=== PATIENT | male | born 1975 ===

== ENCOUNTER 2018-05-31 22:20 | Emergency (ER) | payer OTHER ==
[2018-05-31 22:49] VITALS: BP 113/72; RESP 18; TEMP 98; O2SAT 99
[2018-05-31] MEDS ORDERED: Sodium Chloride 0.9% 1,000 ML IV STA (23:12)
[2018-05-31 23:31] LABS: BASO % 0.3 % (0.0-2.0); EOS # 0.1 K/uL (0.0-0.7); HEMOGLOBIN 14.1 g/dL (12.0-18.0); LYMPH # 0.9 K/uL (1.0-4.3); LYMPH % 7.9 % (20.0-40.0); MEAN CORPUSCULAR HEMOGLOBIN 31.3 pg (27.0-31.0); MEAN CORPUSCULAR HGB CONC 33.7 g/dL (33.0-37.0); MEAN PLATELET VOLUME 8.1 fl (7.2-11.7); MONO # 0.9 K/uL (0.0-0.8); NEUT % 82.8 % (50.0-75.0); PLATELET COUNT 223 K/uL (130-400); RBC 4.49 Mil/uL (4.40-5.90); WHITE BLOOD COUNT 10.8 K/uL (4.8-10.8)
--- NOTE | 2018-05-31 23:32 | ED PDOC ---
Syncope/Near Syncope/Dizziness Time Seen by Provider: 05/31/18 22:48 Chief Complaint (Nursing): Syncope Chief Complaint (Provider): Left Extremity Pain/Injury and Syncope History Per: Patient History/Exam Limitations: no limitations Onset/Duration Of Symptoms: Mins Current Symptoms Are (Timing): Still Present Activity At Onset Of Symptoms: Other (Dancing) Associated Symptoms Preceding Syncopal Episode: Lightheadedness Seizure Or Post-ictal Symptoms: None Additional Complaint(s): 43 y/o [place] male with a PMHx of Achalasia who states just prior was at a family celebration of [facility] and while dancing attempted to perform a split, immediately feeling severe sharp pain to the left hamstring. Patient reports he then felt very lightheaded and sweaty causing him to sit down. According to the family, patient appeared to have lost consciousness. Despite eyes being open, patient was not responding to stimuli from the family. Patient appeared to be weak and slumped over to the right side. Family report loss of consciousness lasted approximately 15 seconds. Patient suddenly woke up, telling people not to call 911 and that he thought he was okay. Denies convulsive activity, urinary incontinence and any weakness currently. Patient reports only pain to the left hamstring. Patient states pain worsens when straightening his leg while lying in bed. PMD: none Past Medical History Reviewed: Historical Data, Nursing Documentation, Vital Signs Vital Signs: Last Vital Signs Temp 98 F 05/31/18 22:42 Pulse 70 05/31/18 22:42 Resp 18 05/31/18 22:42 BP 113/72 05/31/18 22:42 Pulse Ox 99 05/31/18 22:42 - Medical History Other PMH: Achalasia - Surgical History Surgical History: Endoscopy (to relieve Achalasia) - Family History Family History: States: CAD (in father) - Social History Current smoker - smoking cessation education provided: No Alcohol: None Drugs: Denies - Home Medications Home Medications: Ambulatory Orders Medication Instructions Recorded Cyclobenzaprine [Cyclobenzaprine 10 mg PO BID #15 tab 06/01/18 HCl] - Allergies Allergies/Adverse Reactions: Allergies Allergy/AdvReac Type Severity Reaction Status Date / Time No Known Allergies Allergy Verified 05/31/18 22:42 Review of Systems ROS Statement: Except As Marked, All Systems Reviewed And Found Negative (as per HPI) Constitutional: Positive for: Sweats. Negative for: Weakness (currently) Genitourinary Male: Negative for: Incontinence Musculoskeletal: Positive for: Leg Pain (left hamstring pain) Neurological: Positive for: Dizziness (lightheadedness), Other (syncopal episode lasting at about 15 seconds). Negative for: Seizures (no convulsive activity) Physical Exam - Reviewed Nursing Documentation Reviewed: Yes Vital Signs Reviewed: Yes - Physical Exam Appears: Positive for: Uncomfortable, In Acute Distress (mild, painful distress) Head Exam: Positive for: ATRAUMATIC, NORMOCEPHALIC Skin: Positive for: Warm, Dry Eye Exam: Positive for: Normal appearance, EOMI, PERRL. Negative for: Nystagmus ENT: Negative for: Pharyngeal Erythema, Tonsillar Exudate Neck: Positive for: Painless ROM, Supple Cardiovascular/Chest: Positive for: Regular Rate, Rhythm. Negative for: Murmur Respiratory: Positive for: Normal Breath Sounds. Negative for: Respiratory Distress Gastrointestinal/Abdominal: Positive for: Soft. Negative for: Tenderness Back: Positive for: Normal Inspection. Negative for: Decreased ROM Extremity: Positive for: Normal ROM (Full ROM of the left lower extremity), Tenderness (Left Posterior Thigh: Tenderness to palpation of the left upper thigh muscle and lower gluteus), Other (distally neurovascularly intact ) Neurologic/Psych: Positive for: Alert, sample checker II-XII (intact), Oriented (x3), Cerebellar Tests (Normal), Other (Normal Speech). Negative for: Motor/Sensory Deficits, Aphasia, Facial Droop - Laboratory Results Result Diagrams: 05/31/18 23:20 05/31/18 23:20 - ECG ECG Rhythm: Positive for: Normal QRS, Normal ST Segment, Sinus Rhythm Rate: 63 O2 Sat by Pulse Oximetry: 99 (RA) Pulse Ox Interpretation: Normal Medical Decision Making Medical Decision Making: Time: 2319 Impression: Hamstring Strain and Syncope Plan: -- EKG -- CMP -- Magnesium -- Phosphorus -- CBC with Differentials -- Motrin 600 mg PO -- Sodium Chloride 0.9% IV 1000 mls/hr -- Glucose, Blood, POC 2350 Labs unremarkable Pt continues to have tightness. Flexeril ordered Endorsed to Dr Hernandez. Pending reassessment. Scribe Attestation: Documented by Jose L Aquino, acting as a scribe for Doris Lee MD. Provider Scribe Attestation: All medical record entries made by the Scribe were at my direction and personally dictated by me. I have reviewed the chart and agree that the record accurately reflects my personal performance of the history, physical exam, medical decision making, and the department course for this patient. I have also personally directed, reviewed, and agree with the discharge instructions and disposition. Disposition - Clinical Impression Clinical Impression: Syncope, Muscle strain - Disposition Referrals: [facility] [place] [Outside] Disposition: Transfer of Care Disposition Time: 00:00 Condition: STABLE Prescriptions: Cyclobenzaprine [Cyclobenzaprine HCl] 10 mg PO BID #15 tab
[2018-05-31 23:39] VITALS: PULSE 63
[2018-05-31 23:42] LABS: ALB/GLOB RATIO 1.3 (1.0-2.1); ALBUMIN 4.3 g/dL (3.5-5.0); ALT/SGPT 40 U/L (21-72); AST/SGOT 35 U/L (17-59); BLOOD UREA NITROGEN 12 mg/dl (9-20); CALCIUM 9.7 mg/dL (8.4-10.2); GFR NON-AFRICAN AMERICAN > 60
--- NOTE | 2018-06-01 00:07 | ED PDOC ---
- Laboratory Results Result Diagrams: 05/31/18 23:20 05/31/18 23:20 - ECG O2 Sat by Pulse Oximetry: 99 (RA) Pulse Ox Interpretation: Normal Medical Decision Making Medical Decision Making: Time: 0000 -- Patient endorsed to me by Dr. Lee, pending re-evaluation. Time: 014 -- On re-evaluation, patient reports of feeling better. Patient is able to ambulate with no assistance. Patient is stable for discharge home. Scribe Attestation: Documented by Jose L Aquino, acting as a scribe for Gordy Hernandez MD. Provider Scribe Attestation: All medical record entries made by the Scribe were at my direction and personally dictated by me. I have reviewed the chart and agree that the record accurately reflects my personal performance of the history, physical exam, medical decision making, and the department course for this patient. I have also personally directed, reviewed, and agree with the discharge instructions and disposition. Disposition Counseled Patient/Family Regarding: Diagnosis, Need For Followup, Rx Given - Clinical Impression Clinical Impression: Syncope, Muscle strain - POA Present On Arrival: None - Disposition Referrals: [facility] [place] [Outside] Disposition: Routine/Home Disposition Time: 01:41 Condition: STABLE Prescriptions: Cyclobenzaprine [Cyclobenzaprine HCl] 10 mg PO BID #15 tab Instructions: Muscle Strain, Syncope (Fainting) (DC) Forms: [facility] (Spanish), [facility] ED School/Work Excuse
[2018-06-01 00:29] LABS: BASOPHIL 1 % (0-2); EOSINOPHIL 2 % (0-7); LYMPHOCYTE 8 % (20-50); MONOCYTE 7 % (0-10); NEUTROPHIL 79 % (42-75); PLATELET ESTIMATE NORMAL (NORMAL); REACTIVE LYMPHOCYTES 3 % (0-0); TOTAL CELLS COUNTED 100
[2018-06-01 00:38] LABS: LARGE PLATELETS PRESENT; PLATELET CLUMPS PRESENT; TOXIC GRANULATION PRESENT
--- NOTE | 2018-06-01 08:36 | CARD ---
APPROVED REPORT Date of service: 05/31/2018 EKG Measurement Heart [id number] <Conclusion> Normal sinus rhythm Normal ECG
== END 2018-06-01 01:51 | disposition home or self-care (01) ==
LOC: H.ER 22:20
DX: S76.312A Strain of muscle, fascia and tendon of the posterior muscle group at thigh level, left thigh, initial encounter (principal); X50.9XXA Other and unspecified overexertion or strenuous movements or postures, initial encounter; Y92.89 Other specified places as the place of occurrence of the external cause; R55 Syncope and collapse
CPT/HCPCS: 80053; 82948; 83735; 84100; 85025; 93005; 96360; 99285; J7030